=== PATIENT | male | born 1985 | race Caucasian/White ===

== ENCOUNTER 2020-09-09 09:18 | Emergency (ER) | payer OTHER ==
[~2020-09-09] VITALS: Ht 188 cm; Wt 112.0 kg
[~2020-09-09 09:18] MED LIST: IBUPROFEN800 MG PO; IMODIUM A-D2 MG PO; ORPH100T PO; PEPCID40 MG PO; SEPTRA DS TABLE1 TAB PO; ULTRAM50 MG PO; ZOFRAN4 MG PO
[2020-09-09] MEDS ORDERED: FLONASE ALLERG9.9 ML NASAL (14:12)
[2020-09-09] MEDS ORDERED: MUCINEX DM ER1 EAC1 PO (14:12)
[2020-09-09] MEDS ORDERED: KETO10TA2 PO (14:12)
== END 2020-09-09 14:14 | disposition home or self-care (01) ==
LOC: ER 09:18
DX: J06.9 Acute upper respiratory infection, unspecified (principal); Z20.822 Contact with and (suspected) exposure to COVID-19